=== PATIENT | female | born 1955 | race Asian ===

== ENCOUNTER 2016-07-07 06:19 | Day surgery (SDC) | payer OTHER ==
[~2016-07-07] VITALS: Ht 157.5 cm; Wt 52.6 kg
[2016-07-07 07:07] VITALS: Ht 157.5 cm; Wt 52.6 kg
[2016-07-07] MEDS ORDERED: METF500T4 PO (07:12)
[2016-07-07 07:31] VITALS: BP 123/73; PULSE 84; RESP 11
[2016-07-07] MEDS ORDERED: FENTAnyl 50 MCG/ML VIAL ONE (07:57)
[2016-07-07] MEDS ORDERED: MIDAZOLAM 1 MG/ML 2 ML INJ ONE (07:57)
--- NOTE | 2016-07-07 08:08 | GILP ---
DATE OF PROCEDURE: NAME OF PROCEDURE: Colonoscopy. SURGEON: Coby Tompkins MD PREOPERATIVE DIAGNOSIS: Screening colonoscopy. POSTOPERATIVE DIAGNOSES: 1. Colonoscopy all the way to the cecum. 2. Internal hemorrhoids. 3. No colon neoplasm was identified. INDICATION FOR THE PROCEDURE: Ms. Zhane Coley is a 61-year-old female patient who was scheduled for screening colonoscopy. The procedure and possible complications were well explained to the patient. She understood and con sented to the procedure. DESCRIPTION OF PROCEDURE: Under the influence of fentanyl and Versed the colonoscope was carefully introduced in the rectum and under direct vision it was advanced all the way to the cecum. FINDINGS: The patient had internal hemorrhoids. No colon neoplasm was identified. She tolerated the procedure very well and there was no complication from the procedure. At the end of the procedure she was awake with stable vital signs and she was discharged home to the care of he r family. IMPRESSION: 1. Colonoscopy all the way to the cecum. 2. Internal hemorrhoids. 3. No colon neoplasm was identified. PLAN: Next screening colonoscopy in 10 years. Dictated By: COBY HUTTON/NIXON Conf#: [id number] DID#: [id number]
== END 2016-07-07 09:28 | disposition home or self-care (01) ==
LOC: GIL 06:19
PROVIDERS: ATTEND Internal Medicine Gastroenterology
DX: Z12.11 Encounter for screening for malignant neoplasm of colon (principal); K64.8 Other hemorrhoids; E11.9 Type 2 diabetes mellitus without complications
CPT/HCPCS: 45378; 82962; J2250; J3010; Z7610